=== PATIENT | female | born 1995 | race Two or more races ===

== ENCOUNTER 2016-11-09 11:07 | Emergency (ER) | payer MEDICAID, OTHER ==
[~2016-11-09] VITALS: Ht 167.6 cm; Wt 85.7 kg
[~2016-11-09 11:07] MED LIST: DENIES HOME MEDS
[2016-11-09 14:26] VITALS: BP 118/62
== END 2016-11-09 14:28 | disposition home or self-care (01) ==
LOC: ER 11:07
DX: J02.9 Acute pharyngitis, unspecified (principal); F17.210 Nicotine dependence, cigarettes, uncomplicated; F12.10 Cannabis abuse, uncomplicated; H92.02 Otalgia, left ear

== ENCOUNTER 2016-12-05 08:02 | Emergency (ER) | payer MEDICAID ==
[~2016-12-05] VITALS: Ht 167.6 cm; Wt 85.7 kg
[2016-12-05 08:36] VITALS: BP 130/72
[2016-12-05] MEDS ORDERED: ACETAMINOPHEN 500 MG TAB PO ONE (09:00)
== END 2016-12-05 10:13 | disposition home or self-care (01) ==
LOC: ER 08:02
DX: S02.2XXA Fracture of nasal bones, initial encounter for closed fracture (principal); F17.210 Nicotine dependence, cigarettes, uncomplicated; F12.10 Cannabis abuse, uncomplicated; V49.9XXA Car occupant (driver) (passenger) injured in unspecified traffic accident, initial encounter; Y93.89 Activity, other specified; Y92.89 Other specified places as the place of occurrence of the external cause; Y99.8 Other external cause status
CPT/HCPCS: 70486; 81025

== ENCOUNTER 2017-03-14 00:27 | Emergency (ER) | payer MEDICAID ==
[~2017-03-14] VITALS: Ht 167.6 cm; Wt 82.6 kg
[2017-03-14 00:45] VITALS: BP 127/81
[2017-03-14] MEDS ORDERED: methylPREDNISolone SOD SUCC 125 MG/2 ML VL IM ONE (03:45)
== END 2017-03-14 04:36 | disposition home or self-care (01) ==
LOC: ER 00:27
DX: S50.861A Insect bite (nonvenomous) of right forearm, initial encounter (principal); L03.113 Cellulitis of right upper limb; T78.40XA Allergy, unspecified, initial encounter; F17.210 Nicotine dependence, cigarettes, uncomplicated; F12.10 Cannabis abuse, uncomplicated; Z90.49 Acquired absence of other specified parts of digestive tract; W57.XXXA Bitten or stung by nonvenomous insect and other nonvenomous arthropods, initial encounter; Y93.89 Activity, other specified; Y99.8 Other external cause status; Y92.89 Other specified places as the place of occurrence of the external cause
CPT/HCPCS: 96372; 99283; J2930

== ENCOUNTER 2023-11-14 15:59 | Inpatient (IN) | payer MEDICAID ==
[~2023-11-14] VITALS: Ht 165.1 cm; Wt 90.0 kg
[~2023-11-14 15:59] MED LIST changes: +NAPR-1335 PO
[2023-11-14 21:44] LABS: Basophils # (auto) 0 10 ^3/uL (0-0.2); Basophils % (auto) 0.5 % (0.0-2.0); Eosinophils # (auto) 0.1 10 ^3/uL (0-0.8); Eosinophils % (auto) 1.5 % (0.0-7.0); Hematocrit 42.7 % (36.0-46.0); Hemoglobin 14.8 g/dL (12.2-16.2); Lymphocytes # (auto) 2.1 10 ^3/uL (0.4-5.4); Lymphocytes % (auto) 32.9 % (10.0-50.0); Mean Corpuscular Hemoglobin 32.8 pg (28.0-32.0); Mean Corpuscular Hgb Conc. 34.7 g/dL (32.0-36.0); Mean Corpuscular Volume 94.4 fL (80.0-100.0); Monocytes # (auto) 0.8 10 ^3/uL (0-1.3); Monocytes % (auto) 12.8 % (0.0-12.0); Neutrophils # (auto) 3.4 10 ^3/uL (1.6-8.6); Neutrophils % (auto) 52.3 % (37.0-80.0); Red Blood Cells 4.52 10^6/uL (4.0-5.20); Red Cell Distribution Width 12.9 % (11.8-14.3); White Blood Cell 6.5 10^3/uL (4.4-10.8)
[2023-11-14 21:50] LABS: Urine Bacteria NONE SEEN /hpf (None Seen); Urine Blood 1+ /uL (Negative); Urine Clarity HAZY (Clear); Urine Color Yellow (Yellow); Urine Protein, UAD Negative (Negative); Urine WBC 1 /hpf (0 - 5); Urine pH 6.5 (5.0-8.0)
[2023-11-14 22:03] LABS: Alanine Aminotransferase 37 U/L (7-40); Albumin 4.6 g/dL (3.2-4.8); Alkaline Phosphatase 46 U/L (46-116); Anion Gap 3 (5-15); Aspartate Aminotransferase 27 U/L (13-40); Calcium 9.4 mg/dL (8.7-10.4); Carbon Dioxide 28 mmol/L (20-30); Chloride 107 mmol/L (98-107); Glucose 86 mg/dL (74-106); Lipase 49 U/L (12-53); Potassium 3.2 mmol/L (3.5-5.1); Sodium 138 mmol/L (136-145)
[2023-11-14 22:04] LABS: Bilirubin, Total 0.5 mg/dL (0.2-1.0); Total Protein 7.5 g/dL (5.7-8.2)
[2023-11-14 22:05] LABS: BUN/Creatinine Ratio 8.1 (10.0-20.0); Blood Urea Nitrogen < 5 mg/dL (9-23)
[2023-11-14] MEDS ORDERED: NITROGLYCERIN 0.4 MG SL TAB SL PRN (23:00)
[2023-11-14] MEDS ORDERED: ACETAMINOPHEN 325 MG TAB PO PRN (23:00)
[2023-11-14] MEDS ORDERED: DOCUSATE SOD 100 MG CAP PO PRN (23:00)
[2023-11-14] MEDS ORDERED: MORPHINE SULFATE INJ 2 MG/ml SYRG IV PRN ×2 (23:00)
[2023-11-14] MEDS ORDERED: HYDROcodone-ACET 5/325MG TAB PO PRN (23:00)
[2023-11-14] MEDS ORDERED: ONDANSETRON HCL 4 MG/2 ML VIAL IV PRN (23:00)
[2023-11-14] MEDS: SODIUM CHLORIDE 0.9% 1,000 ML IV SCH (23:23)
[2023-11-14] MEDS: KETOROLAC TROMETH 30 MG/ML 1ML VIAL IV ONE (23:28)
[2023-11-15] MEDS: POTASSIUM CHL 20 Meq TABLET PO ONE ×2 (00:13)
[2023-11-15] MEDS: FAMOTIDINE (10MG/ML) 2ML VL IV ONE ×2 (00:13→00:14)
[2023-11-15] MEDS: PIPERACILLIN-TAZO 4.5GM 100 ML IV ONE ×2 (00:14→00:18)
[2023-11-15] MEDS: CLINDAMYCIN 300MG IV 50 ML IV SCH (00:36)
[2023-11-15 00:44] VITALS: PULSE 83; RESP 11; O2SAT 98
[2023-11-15 05:02] LABS: Basophils # (auto) 0 10 ^3/uL (0-0.2); Basophils % (auto) 0.4 % (0.0-2.0); Eosinophils # (auto) 0.1 10 ^3/uL (0-0.8); Eosinophils % (auto) 1.5 % (0.0-7.0); Hematocrit 40.2 % (36.0-46.0); Hemoglobin 13.9 g/dL (12.2-16.2); Lymphocytes # (auto) 1.6 10 ^3/uL (0.4-5.4); Lymphocytes % (auto) 23.7 % (10.0-50.0); Mean Corpuscular Hemoglobin 32.8 pg (28.0-32.0); Mean Corpuscular Hgb Conc. 34.7 g/dL (32.0-36.0); Mean Corpuscular Volume 94.7 fL (80.0-100.0); Monocytes # (auto) 0.9 10 ^3/uL (0-1.3); Monocytes % (auto) 13.2 % (0.0-12.0); Neutrophils # (auto) 4.1 10 ^3/uL (1.6-8.6); Neutrophils % (auto) 61.2 % (37.0-80.0); Nucleated Red Blood Cells % 0.1 %; Red Blood Cells 4.24 10^6/uL (4.0-5.20); Red Cell Distribution Width 12.7 % (11.8-14.3); White Blood Cell 6.7 10^3/uL (4.4-10.8)
[2023-11-15 05:18] LABS: Alanine Aminotransferase 37 U/L (7-40); Albumin 4.4 g/dL (3.2-4.8); Alkaline Phosphatase 43 U/L (46-116); Anion Gap 4 (5-15); Aspartate Aminotransferase 31 U/L (13-40); Calcium 9.5 mg/dL (8.5-10.1); Carbon Dioxide 27 mmol/L (20-30); Chloride 110 mmol/L (98-107); Glucose 95 mg/dL (74-106); Potassium 4.2 mmol/L (3.5-5.1); Sodium 141 mmol/L (136-145)
[2023-11-15 05:19] LABS: Bilirubin, Total 0.4 mg/dL (0.2-1.0); Total Protein 6.6 g/dL (5.7-8.2)
[2023-11-15 05:26] LABS: BUN/Creatinine Ratio 8.8 (10.0-20.0); Blood Urea Nitrogen < 5 mg/dL (9-23)
[2023-11-15] MEDS ORDERED: CLINDAMYCIN 300MG IV 50 ML IV SCH (06:00)
[2023-11-15 08:00] VITALS: RESP 16; TEMP 97.8; O2SAT 96
[2023-11-15] MEDS ORDERED: cefTRIAXone 1GM/50ML D5W 50 ML IV SCH (09:00)
[2023-11-15] MEDS: ZINC SULFATE 220mg CAP or TAB PO SCH (10:00)
[2023-11-15] MEDS: ASCORBIC ACID 500 MG TAB PO SCH (10:00)
[2023-11-15] MEDS: MULTIPLE VITAMIN TAB PO SCH (10:00)
[2023-11-15] MEDS ORDERED: METR-344 PO (12:45)
[2023-11-15] MEDS ORDERED: CIPR-173 PO (12:45)
[2023-11-15] MEDS: metroNIDAZOLE 500 MG TAB PO SCH (14:03)
[2023-11-15 16:00] VITALS: BP 115/65; PULSE 77; RESP 16; O2SAT 99
== END 2023-11-15 16:22 | disposition home or self-care (01) | DRG 249 ==
LOC: ER 15:59 → TELE 23:01 → UNDODEPER 11-15 16:08
PROVIDERS: ADMIT Internal Medicine; ATTEND Internal Medicine
DX: K52.9 Noninfective gastroenteritis and colitis, unspecified (principal); E87.8 Other disorders of electrolyte and fluid balance, not elsewhere classified; E66.9 Obesity, unspecified; N30.00 Acute cystitis without hematuria; F17.210 Nicotine dependence, cigarettes, uncomplicated; Z90.49 Acquired absence of other specified parts of digestive tract; Z79.899 Other long term (current) drug therapy; Z68.33 Body mass index [BMI] 33.0-33.9, adult
CPT/HCPCS: 36415; 74176; 80053; 81001; 81025; 83690; 85025; G0378; J3490

== ENCOUNTER 2025-07-10 11:40 | Observation (INO) | payer MEDICAID ==
[~2025-07-10 11:40] MED LIST changes: +CIPR-173 PO; +METR-344 PO
[2025-07-10] MEDS ORDERED: PREN-96 PO (13:24)
--- NOTE | 2025-07-10 15:05 | DVHDS2 ---
Physician Discharge Progress N Final Diagnosis: DEC MOVEMENT 25WKS Operations or Procedures: Operations or Procedures NST,JOHANNAO Commentary: Commentary PT FEELS BABY MOVE Condition on Discharge: Good Disposition: Home Discharge Instructions: Diet: Regular Activity: No Restrictions, As Tolerated Medications: NA Follow Up Care: Specialist: 2D Discharge Statement: "Patient was advised to return to the ER or call 911 if any headaches, dizziness, shortness of breath, chest pain, abdominal pain, bleeding, fevers, or worsening of medical condition. Patient was counseled about treatment plan, medications, possible side effects, patientverbalized understanding. All questions were answered to the best of my ability. This discharge took greater then 30 minutes in planning, reviewing documentation, counseling the patient, and discussing with other team members." Visit Coding OBGYN Date of Service: Jul 10, 2025 Billing Provider: KULDEEP REYNOLDS DO CAN LINE OPERATOR Common Visit Codes: 58426-LTDOEAE OBS CARE (HIGH) CAN LINE OPERATOR Procedure Codes: 63343-68- NON-STRESS TEST KULDEEP REYNOLDS DO Jul 10, 2025 15:05
== END 2025-07-10 12:06 | disposition home or self-care (01) ==
LOC: LDRP 11:40
PROVIDERS: ADMIT Obstetrics & Gynecology; ATTEND Obstetrics & Gynecology
DX: O36.8120 Decreased fetal movements, second trimester, not applicable or unspecified (principal); Z3A.25 25 weeks gestation of pregnancy; Z98.890 Other specified postprocedural states
CPT/HCPCS: 81002; 94760; G0378; 59025

== ENCOUNTER 2025-08-16 19:55 | Observation (INO) | payer MEDICAID ==
[~2025-08-16] VITALS: Ht 30.5 cm; Wt 0.5 kg
[~2025-08-16 19:55] MED LIST changes: +PREN-96 PO
[2025-08-16] MEDS ORDERED: LACTATED RINGER'S 1,000 ML IV ONE (20:30)
[2025-08-16 20:57] LABS: Vaginal Trichomonas Not Present
[2025-08-16 20:58] LABS: Vaginal Bacteria Few; Vaginal Clue Cells Few; Vaginal Epithelial Cells Moderate
[2025-08-16] MEDS: TERBUTALINE SULFATE 1 MG/ML 1ML VIAL SC ONE (22:17)
[2025-08-16] MEDS: BETAMETHASONE ACET (30mg/5ml) 5ml Vial 6mg/ml IM ONE (22:30)
--- NOTE | 2025-08-16 22:30 | DVH ---
LIMITED THIRD TRIMESTER OBSTETRICAL ULTRASOUND HISTORY: UCS/ decreased movement. A1. ANDRE 10/17/2025. EGA 31 weeks 1 day. COMPARISON: None TECHNIQUE: Transabdominal and transvaginal imaging of the pelvis. FINDINGS: heart rate measures 135 beats per minute. POSITION: Cephalic. AMNIOTIC FLUID VOLUME: Unremarkable, within amniotic fluid index of 15.7 cm. PLACENTA: Anterior. No evidence of abruption. No evidence of placenta previa. LOWER UTERINE SEGMENT: No evidence of placenta or vasa previa. CERVIX: 2.5 cm long. There is mild funneling of the internal os. ADNEXA: Unremarkable. IMPRESSION: Single live intrauterine gestation. Shortened cervix with mild funneling of the internal os. Close interval follow- up is recommended.
[2025-08-16] MEDS ORDERED: NIFE10CA52 PO (22:41)
[2025-08-16] MEDS ORDERED: METR-344 PO (22:47)
--- NOTE | 2025-08-17 21:06 | DVHDS2 ---
Physician Discharge Progress N Final Diagnosis: IUP at 31w 1d Bacterial Vaginosis Contraction Reactive NST Operations or Procedures: Operations or Procedures 08/16/25 @ 2015 > 29yo G3, 1011 with EDC of 10/17/2025, NOBLE 31w 1d presents to place with report of cramping and decreased FM. She reports no LOF, no VB, HOWE, vision changes or epigastric pain. O: PE: A&O x3, NAD, well groomed. pleasant. Appropriate and normal mood and affect Afebrile, VSS Respiration unlabored Heart and lungs sounds: normal Abdomen: Gravid, non-tender to palpation. Cephalic presentation Extremities: No edema VE: Close/ long/posterior cervix, medium in consistency UC: q6-9min x 85secs FHR baseline 135bpm with moderate variability and accelerations, no deceleration A: IUP @ 31w 1d Contractions P: IV hydration with LR Tocolyze with Terbutaline if no improvement with hydration OB US complete and Cervical length [place] Re-assessment at 23:00 UCs: occasional contractions 1 in 30minutes with some irritability noted FHR baseline 135bpm with moderate variability and accelerations, no deceleration US report: CERVIX: 2.5 cm long. There is mild funneling of the internal os. LUIS CARLOS: 15.7cm A: IUP at 31w 1d Reactive NST BV Plan: Administer Celestone 12mg intramuscularly; i.m; repeat in 24 hours Discharge home f/u with OB provider on 08/18/25 Rx Metronidazole 500mg orally 2 times a day x7d Procardia 10mg orally every 6hours [facility] [place], 3rd trimester emergency signs and symptoms reviewed with patient, advised to go to ER if any emergency symptom Condition on Discharge: Stable Disposition: Home Discharge Instructions: Diet: Regular Activity: Light activity Follow Up/Referral: Follow up with OB Provider on 08/18/25 Medications: Metronidazole Procardia Follow Up Care: Discharge Statement: [facility] [place] Instructions given. 3rd trimester emergency signs and symptoms reviewed with patient, advised to go to ER if any "Patient was advised to return to the ER or call 911 if any headaches, dizziness, shortness of breath, chest pain, abdominal pain, bleeding, fevers, or worsening of medical condition. Patient was counseled about treatment plan, medications, possible side effects, patientverbalized understanding. All questions were answered to the best of my ability. This discharge took greater then 30 minutes in planning, reviewing docu mentation, counseling the patient, and discussing with other team members." Discharge Care Plan Instructions See pt D/C handouts Visit Coding OBGYN Date of Service: Aug 16, 2025 Billing Provider: YAQUELIN MCDANIELS CNM BUSINESS DEVELOPMENT ASSOCIATE Common Visit Codes: 03508-YMJ/OBS SAME DATE (HIGH) BUSINESS DEVELOPMENT ASSOCIATE Procedure Codes: 67782-75- NON-STRESS TEST YAQUELIN MCDANIELS CNM Aug 17, 2025 21:06
== END 2025-08-16 23:31 | disposition home or self-care (01) ==
LOC: LDRP 19:55
PROVIDERS: ADMIT Obstetrics & Gynecology; ATTEND Obstetrics & Gynecology
DX: O36.8130 Decreased fetal movements, third trimester, not applicable or unspecified (principal); O23.593 Infection of other part of genital tract in pregnancy, third trimester; O60.03 Preterm labor without delivery, third trimester; Z3A.31 31 weeks gestation of pregnancy; Z79.899 Other long term (current) drug therapy; Z98.890 Other specified postprocedural states
CPT/HCPCS: 59025; 76815; 76817; 81002; 87210; 94760; 96360; 96361; 96372; A4649; G0378

== ENCOUNTER 2025-08-17 21:00 | Observation (INO) | payer MEDICAID ==
[~2025-08-17] VITALS: Ht 165.1 cm; Wt 103.9 kg
[~2025-08-17 21:00] MED LIST changes: +NIFE10CA52 PO
--- NOTE | 2025-08-17 21:13 | DVHDS2 ---
Physician Discharge Progress N Final Diagnosis: IUP at 31w 2d Reactive NST Operations or Procedures: Operations or Procedures Ms. Berry presents to the Place for second dose of Celestone today. She reports normal movement, no SROM, no VB, vision changes or epigastric pain. Accompanied by her partner O: A&O x3, NAD, well groomed. pleasant. Appropriate and normal mood and affect Afebrile, VSS Respiration unlabored Heart and lungs sounds: normal Abdomen: Gravid, non-tender to palpation. Cephalic presentation by Dario Extremities: No edema EFM: FHR baseline 145bpm, moderate variability, Accelerations present, no deceleration Tocometer: No contraction noted, none palpable FHR baseline 140bpm with moderate variability and accelerations, no deceleration A: Reactive NST P: Discharge home f/u with Dr. Mann on 08/18/25 3rd trimester emergency S&S FMC, PTL & pre-eclampsia precautions reviewed with pt; advised to seek health care if any symptom including but not limited to any of the above. Condition on Discharge: Stable Disposition: Home Discharge Instructions: Diet: Regular Diet comment: Routine regular diet rich in fiber, protein, iron and vitamin C with adequate fluid intake. Activity: Light activity Follow Up/Referral: To f/u with Dr. Mann on 08/18/25 Medications: No new medication Follow Up Care: Discharge Statement: [facility] [place] instructions given. 3rd trimester emergency signs and symptoms reviewed with patient, advised to go to ER if any "Patient was advised to return to the ER or call 911 if any headaches, dizziness, shortness of breath, chest pain, abdominal pain, bleeding, fevers, or worsening of medical condition. Patient was counseled about treatment plan, medications, possible side effects, patientverbalized understanding. All questions were answered to the best of my ability. This discharge took greater then 30 minutes in planning, reviewing documentation, counseling the patient, and discussing with other team members." Visit Coding OBGYN Date of Service: Aug 17, 2025 Billing Provider: YAQUELIN MCDANIELS CNM INVENTORY TAKER Common Visit Codes: 96368-ICE/OBS SAME DATE (HIGH) INVENTORY TAKER Procedure Codes: 60856-86- NON-STRESS TEST YAQUELIN MCDANIELS CNM Aug 17, 2025 21:13
[2025-08-17] MEDS: BETAMETHASONE ACET (30mg/5ml) 5ml Vial 6mg/ml IM ONE (21:27)
== END 2025-08-17 21:53 | disposition home or self-care (01) ==
LOC: LDRP 21:00
PROVIDERS: ADMIT Obstetrics & Gynecology; ATTEND Obstetrics & Gynecology
DX: Z36.89 Encounter for other specified antenatal screening (principal); Z98.890 Other specified postprocedural states; Z3A.31 31 weeks gestation of pregnancy
CPT/HCPCS: 59025; 81002; 94760; 96372; A4649; G0378